=== PATIENT | male | born 1955 | race Caucasian/White ===

== ENCOUNTER 2021-08-28 09:40 | Day surgery (SDC) | payer MEDICARE ==
--- NOTE | 2021-08-28 08:40 | HP ---
DATE OF SURGERY: 08/28/2021 HISTORY OF PRESENT ILLNESS: The patient is a 65-year-old with history of polyps in the past. Last colonoscopy three of four years ago. He is in need of follow up screening colonoscopy. He denies any bloody stools or change in bowel movement. No current pain. 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 He had some back problems and infusion pump. PAST SURGICAL HISTORY: Pacemaker in the past. Infusion pump. Cancer surgery. Eye surgery in the past. MEDICATIONS: Metoprolol, Baclofen, Topiramate, amlodipine, hydromorphone as needed. ALLERGIES: ASPIRIN. CODEINE. FAMILY HISTORY: Cancer. SOCIAL HISTORY: No smoking or alcohol abuse. REVIEW OF SYSTEMS: Fourteen systems reviewed. No chest pain or palpitations. Other systems negative or noncontributory as above and per preadmission questionnaire. PHYSICAL EXAMINATION: GENERAL: No acute distress. HEENT: Sclerae nonicteric. NECK: No JVD. CHEST: Equal excursion, nonlabored breathing. He did have a large subcutaneous mass posterior right axilla/back area. He will have it worked on at a later date. CVS: Regular rate and rhythm. ABDOMEN: Soft. No peritoneal signs. EXTREMITIES: No cyanosis. No significant edema. NEURO: Alert, oriented. RECTAL: Deferred timed to endoscopy exam. PSYCH: Appropriate mood and affect. IMPRESSION: History of polyps. He is in need of follow up screening colonoscopy. I feel he is a candidate. General risk of bleeding, infection, risk of bowel injury or perforation possibility requiring further procedure. Risk of missed or nondiagnosis or incomplete exam possibly requiring barium enema, other studies or procedures, general risk of anesthesia or sedation, risk of bowel prep but not limited to, consent obtained. Will proceed with outpatient follow up colonoscopy given his history of polyps in the past. At a later date he is considering excisional of posterior right axilla/back area subcutaneous mass.
[~2021-08-28 09:40] MED LIST: Lactated Ringers 1,000 ML IV ONE
[2021-08-28] MEDS ORDERED: Lactated Ringers 1,000 ML IV SCH (11:00)
[2021-08-28] MEDS ORDERED: DIPRIVAN 200 MG/20 ML IV ONE (11:32)
[2021-08-28] MEDS ORDERED: Ephedrine Sulfate 50 MG/ML ONE (11:53)
[2021-08-28 13:00] VITALS: BP 133/84; PULSE 84; O2SAT 97
--- NOTE | 2021-08-29 10:47 | OP ---
SURGERY DATE/TIME: 08/28/2021 1135 PREOPERATIVE DIAGNOSIS: History of polyps. POSTOPERATIVE DIAGNOSES: 1) ASA Class III. 2) Fair bowel prep. 3) Diverticulosis. 4) Polyps sigmoid colon and rectum. PROCEDURES: 1) Colonoscopy to terminal ileum. 2) Retrograde ileoscopy. 3) Hot snare polypectomy of sigmoid colon polyp (approximately 1 cm polyp). 4) Hot biopsy of small early polyp versus hyperplastic lesion sigmoid colon near the pedunculated polyp. 5) Hot biopsy polypectomy small early polyp versus hyperplastic lesion rectum. SURGEON: Dr. Sergio Simpson. ANESTHESIA: MAC. ESTIMATED BLOOD LOSS: Minimal. INDICATIONS: As noted above. Risks and benefits explained in detail but not limited to and consent obtained. DESCRIPTION OF PROCEDURE AND FINDINGS: The patient is taken to the endoscopy room. MAC anesthesia introduced. After official time out and no disagreement with planned procedure, digital rectal exam did not reveal any rectal masses. Video colonoscope inserted and passed up through the tortuous sigmoid, descending, transverse and ascending colon passed around to the cecum. Appendiceal orifice and valve well visualized. The scope was able to be passed up the terminal ileum which was grossly unremarkable. Retrograde ileoscopy grossly unremarkable. Photo documented appendiceal orifice and valve and the ileum. The scope is carefully withdrawn over the next nine minutes. Prep overall was fair with a little bit of liquidy semi-solid stool but did limit the exam for a tiny lesion and was suctioned irrigated as clear as possible. The scope is slowly and carefully withdrawn. He did have some diverticula throughout the colon most prominent in the left colon. In the left colon there was some blue dye where he had a prior polypectomy site and this looked like this was fine. No evidence of any regrowth there. The scope was then pulled back to the sigmoid colon. Small, flat early polyp versus hyperplastic lesion removed with hot biopsy polypectomy with brief bursts of cautery. Good hemostasis noted. On a fold near this area was a 1 cm pedunculated polyp which was removed with hot snare polypectomy with brief bursts of cautery. Good hemostasis noted. Scope is then pulled back in the rectum. Small early polyp versus hyperplastic lesion about 2 mm in size removed with hot biopsy polypectomy. Good hemostasis noted. The patient tolerated the procedure well. There were no immediate complications.
== END 2021-08-28 13:05 | disposition home or self-care (01) ==
LOC: SDC 09:40
PROVIDERS: ATTEND Surgery
DX: Z09 Encounter for follow-up examination after completed treatment for conditions other than malignant neoplasm (principal); D12.8 Benign neoplasm of rectum; D12.6 Benign neoplasm of colon, unspecified; K57.90 Diverticulosis of intestine, part unspecified, without perforation or abscess without bleeding; Z86.010 Personal history of colon polyps
CPT/HCPCS: 88305; 93005; J2704

== ENCOUNTER 2021-09-04 10:03 | Day surgery (SDC) | payer MEDICARE ==
--- NOTE | 2021-09-04 07:49 | HP ---
DATE OF SURGERY: 09/04/2021 HISTORY OF PRESENT ILLNESS: The patient is a 65-year-old has had enlarging subcutaneous mass right axilla and on back area also causing some aches in need of excision. PAST MEDICAL HISTORY: He had pacemaker, Stiff man syndrome, had some adenoid cystic cancer or carcinoma in the past. PAST SURGICAL HISTORY: He has undergone recent colonoscopy and has history of infusion pump. Cancer surgery. Eye surgery. MEDICATIONS: Metoprolol, Baclofen as needed, Topiramate, amlodipine, hydromorphone as needed. ALLERGIES: ASPIRIN. CODEINE. FAMILY HISTORY: Cancer. SOCIAL HISTORY: No smoking or alcohol abuse. REVIEW OF SYSTEMS: Fourteen systems reviewed. No chest pain or palpitations. Other systems negative or noncontributory as above and per preadmission questionnaire. PHYSICAL EXAMINATION: GENERAL: No acute distress. HEENT: Sclerae nonicteric. NECK: No JVD. CHEST: Equal excursion, nonlabored breathing. CVS: Regular rate and rhythm. ABDOMEN: Soft. No peritoneal signs. On his flank towards the back of his right axilla area towards the back area subcutaneous mass. Question lipoma or other etiology. EXTREMITIES: No cyanosis. No NEURO: Alert, oriented. PSYCH: Appropriate mood and affect. IMPRESSION: Enlarging subcutaneous mass right axilla radiating towards the back. Question lipoma or other etiology. I feel he would benefit from excisional biopsy. Risks and benefits explained in detailed including but not limited to bleeding or infection, risk of hematoma or seroma formation, risk of aches, pains, burning or numbness as well as weakness of his shoulder or scapula, risk of sensory or motor nerve irritation, scar formation or injury possibly requiring other procedures, general risk of anesthesia, deep venous thrombosis, pulmonary embolism, or pneumonia, perioperative risks and pains but not limited to. Risk of lymphedema. General risk of anesthesia, deep vein thrombosis but not limited to. Will proceed with excisional biopsy of posterior right axilla/back area subcutaneous mass as an outpatient.
[~2021-09-04 10:03] MED LIST changes: +Lactated Ringers 1,000 ML IV SCH; +Sensorcaine 0.25% 10 ML ONE
[2021-09-04] MEDS ORDERED: Xylocaine-Mpf 2% 5 Ml Vial ONE (10:13)
[2021-09-04] MEDS ORDERED: Zofran 4 MG/2 ML VIAL ONE (10:13)
[2021-09-04] MEDS ORDERED: Decadron 4 MG INJ ONE (10:13)
[2021-09-04] MEDS ORDERED: DIPRIVAN 200 MG/20 ML IV ONE (10:14)
[2021-09-04] MEDS ORDERED: Quelicin Fliptop 200 MG/10 ML ONE (10:14)
[2021-09-04] MEDS ORDERED: Versed 2 MG/2 ML Injection ONE (10:18)
[2021-09-04] MEDS ORDERED: SUBLIMAZE 100 MCG/2 ML ONE (10:18)
[2021-09-04] MEDS ORDERED: Pre-Attached Lta Kit TP ONE (10:22)
[2021-09-04] MEDS ORDERED: Lactated Ringers 1,000 ML IV SCH (10:30)
[2021-09-04] MEDS ORDERED: Lactated Ringers 1,000 ML IV ONE (10:44)
[2021-09-04] MEDS ORDERED: OFIRMEV 100 ML IV ONE (11:44)
[2021-09-04] MEDS ORDERED: Ephedrine Sulfate 50 MG/ML ONE (12:12)
[2021-09-04 14:19] VITALS: O2SAT 97
--- NOTE | 2021-09-04 14:19 | OP ---
SURGERY DATE/TIME: 09/04/2021 1145 PREOPERATIVE DIAGNOSIS: Enlarging subcutaneous mass or lipoma lower right axilla. POSTOPERATIVE DIAGNOSIS: Enlarging subcutaneous mass or lipoma lower right axilla. PROCEDURE: Excisional biopsy of right axilla lipoma (approximately 4.2 cm). SURGEON: Sergio Simpson M.D. DIGITAL ADVISOR: Tiffanie Pa, Medical Student III. ANESTHESIA: General. ESTIMATED BLOOD LOSS: Minimal. INDICATIONS: As noted above. Risks and benefits explained in detail but not limited to, consent obtained. DESCRIPTION OF PROCEDURE AND FINDINGS: The patient is taken to the operating room. General anesthesia introduced. Placed in lateral position. Appropriate padding and positioning per anesthesia and OR staff. He is prepped and draped in usual sterile fashion. After official time out and no disagreement with planned procedure, a transverse incision made and dissection carried down through the subcutaneous tissue around this subcutaneous lobulated mass in the lower right axilla. Carefully dissected off to more normal appearing subcutaneous tissue and passed off. It measured about 4.2 cm with margins and passed off for pathology. Good hemostasis noted. It is then closed with interrupted 2-0 Vicryl in deep and superficial subcu. Skin closed with 4-0 Vicryl. Steri-Strips and sterile dressing applied. The patient tolerated the procedure well. There were no immediate complications. Findings discussed with the family out in the waiting area.
[2021-09-04 14:30] VITALS: BP 140/86; PULSE 64
== END 2021-09-04 14:30 | disposition home or self-care (01) ==
LOC: SDC 10:03
PROVIDERS: ATTEND Surgery
DX: D17.1 Benign lipomatous neoplasm of skin and subcutaneous tissue of trunk (principal); R22.2 Localized swelling, mass and lump, trunk
CPT/HCPCS: 88304; J0330; J1100; J2250; J2405; J2704; J3010

== ENCOUNTER 2024-10-26 09:20 | Day surgery (SDC) | payer MEDICARE ==
--- NOTE | 2024-10-26 07:40 | HP ---
PREOPERATIVE HISTORY AND PHYSICAL HISTORY OF PRESENT ILLNESS: History of polyps 2 year ago. No bloody stools. No change in bowel habits. No new pain. Family history negative for colon cancer. He is in need for followup screening colonoscopy. PAST MEDICAL HISTORY: History of dysrhythmia, COPD and hypertension. PAST SURGICAL HISTORY: Pacemaker defibrillator in the past. Splenectomy in the past. He had eye surgery in the past. Infusion pump for baclofen, hydromorphone for chronic pain. SOCIAL HISTORY: No smoking. No alcohol abuse. MEDICATIONS: Amlodipine, metoprolol, and albuterol. ALLERGIES: Aspirin and codeine. REVIEW OF SYSTEMS: Twelve systems reviewed. Pertinent for problems as noted above. Patient does have stiff-man syndrome. PHYSICAL EXAMINATION: GENERAL: Height 5 feet 7 inches. BMI 26.6. No acute distress. HEENT: Sclerae nonicteric. Extraocular movements are intact. NECK: No JVD. CHEST: Equal excursion, nonlabored breathing. CARDIOVASCULAR: Regular rate and rhythm, pulse. ABDOMEN: Soft. EXTREMITIES: No cyanosis. NEUROLOGIC: Alert. PSYCHIATRIC: Appropriate mood and affect. SKIN: Dry. RECTAL: Deferred until endoscopy exam. IMPRESSION: History of polyps, needs followup screening colonoscopy. I feel he is a candidate. Risks were explained of the procedure in detail including but not limited to bleeding and infection; risk of bowel injury or perforation possibly; risk of missed or non-diagnosis; risk of incomplete exam. Otherwise, continue medications for COPD and hypertension. We will proceed with outpatient followup screening colonoscopy under MAC anesthesia.
[2024-10-26] MEDS ORDERED: Lactated Ringers 1,000 ML IV ONE (09:39)
[2024-10-26] MEDS: Lactated Ringers 1,000 ML IV SCH (09:56)
[2024-10-26] MEDS ORDERED: Versed 2 MG/2 ML Injection ONE (12:14)
[2024-10-26] MEDS ORDERED: propofoL IV ONE (12:14)
[2024-10-26 13:02] VITALS: RESP 18; TEMP 97.7
[2024-10-26 13:13] VITALS: BP 142/78; PULSE 62; O2SAT 99
--- NOTE | 2024-10-28 10:10 | OP ---
SURGERY DATE/TIME: 10/26/2024 [id number] PREOPERATIVE DIAGNOSES: 1) Need for screening colonoscopy. 2) History of polyps in the past. POSTOPERATIVE DIAGNOSES: 1) Small polyps. 2) Few small diverticula. 3) ASA class 3. PROCEDURE: 1) Colonoscopy to the cecum; hot biopsy polypectomy, vague, small raised lesions versus early hyperplastic lesion, ileocecal valve. 2) Hot biopsy polypectomy, sigmoid colon polyps, x4. SURGEON: Bennett Simpson MD VOCATIONAL TEACHER: COOPER Ramos ESTIMATED BLOOD LOSS: Minimal. INDICATION: As noted above. Consent was obtained. DESCRIPTION OF PROCEDURE AND FINDINGS: The patient was taken to the endoscopy room. MAC anesthesia induced. After official time-out, no disagreement in planned procedure. Videocolonoscope inserted and passed down the cecum, appendiceal orifice, and bowel wall visualized. Prep overall was good. He was ASA class 3. The scope was carefully withdrawn over the next 8 minutes, stopping to enter and photo document the ileocecal valve and appendiceal orifice. There was a small, vague raised lesion on the ileocecal valve. Whether this was an early polyp or hyperplastic lesion, it was treated with a hot biopsy forceps and reverse cautery. Good hemostasis was noted. The scope was then carefully withdrawn back through the scope. He had prior blue dye marked area from previous polyp removal that looked good. It did not look like there was anything recurrent at that site. The scope was then pulled back around to the sigmoid colon. Then 4 small 2 mm early polyps or hyperplastic lesions were removed with hot biopsy polypectomy. Good hemostasis was noted. The scope was then withdrawn. The patient tolerated the procedure well. There were no immediate complications. He did have a few small diverticula in the left colon.
== END 2024-10-26 13:22 | disposition home or self-care (01) ==
LOC: SDC 09:20
PROVIDERS: ATTEND Surgery
DX: Z12.11 Encounter for screening for malignant neoplasm of colon (principal); Z09 Encounter for follow-up examination after completed treatment for conditions other than malignant neoplasm; Z86.0100 Personal history of colon polyps, unspecified; K57.30 Diverticulosis of large intestine without perforation or abscess without bleeding; D12.0 Benign neoplasm of cecum; D12.5 Benign neoplasm of sigmoid colon
CPT/HCPCS: 93005; J2250; J2704